=== PATIENT | male | born 1980 | race Caucasian/White ===

== ENCOUNTER 2017-01-22 20:52 | Emergency (ER) | payer OTHER ==
[2017-01-22 21:10] VITALS: RESP 18
[2017-01-22] MEDS ORDERED: MORPHINE SULFATE 10 MG/ML SYRINGE IM STA (22:28)
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
[2017-01-23 00:35] VITALS: BP 147/97; PULSE 92; TEMP 97
== END 2017-01-23 00:35 | disposition home or self-care (01) ==
LOC: EC 20:52
DX: S02.642A Fracture of ramus of left mandible, initial encounter for closed fracture (principal); F17.200 Nicotine dependence, unspecified, uncomplicated; Y08.89XA Assault by other specified means, initial encounter
CPT/HCPCS: 70486; 99283; 96372; J2270

== ENCOUNTER 2017-02-03 20:41 | Observation (INO) | payer OTHER ==
[2017-02-03] MEDS ORDERED: NALOXONE 0.4 MG/ML 10 ML VIAL IM STA (21:15)
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
--- NOTE | 2017-02-03 22:16 | CT ---
EXAMINATION TYPE: CT brain yuanine wo con DATE OF EXAM: 02/03/2017 9:56 PM COMPARISON: February 19, 2016 HISTORY: Patient found unresponsive CT DLP: 1877 mGycm Automated exposure control for dose reduction was used. TECHNIQUE: CT scan of the head and cervical spine are performed without contrast. FINDINGS: CT: There is no acute intracranial hemorrhage, mass effect, or midline shift identified. The ventric les and sulci are within normal limits in size. The globes are intact and the visualized sinuses are clear. Cervical spine CT: The cervical spine is visualized in its entirety from C1 through upper thoracic le vels and demonstrates satisfactory alignment without evidence of acute fracture or dislocation. Prev ertebral soft tissue appears within normal limits. The C1-C2 articulation is unremarkable. Left mandible: The left mandible shows a mildly displaced fracture through the ramus, immediately pos terior to the mandibular angle. This fracture extends through the mandibular canal. There is very lit tle in the way of comminution or displacement. The temporal mandibular joints are congruent. IMPRESSION: 1. Positive for left mandibular ramus fracture. 2. Head CT: There is no acute fracture or dislocation evident in the cervical spine. 3. Cervical spine CT: No acute intracranial hemorrhage, mass effect, or midline shift is seen.
--- NOTE | 2017-02-03 22:17 | XR ---
EXAMINATION TYPE: XR pelvis AP view DATE OF EXAM: 02/03/2017 9:52 PM COMPARISON: NONE HISTORY: Pain after injury TECHNIQUE: One view FINDINGS: The bones and joints and soft tissues are negative. IMPRESSION: No acute process.
--- NOTE | 2017-02-03 22:18 | XR ---
EXAMINATION TYPE: XR chest 1V DATE OF EXAM: 02/03/2017 9:52 PM COMPARISON: NONE HISTORY: Pain after injury TECHNIQUE: Single frontal view of the chest is obtained. FINDINGS: There is no focal air space opacity, pleural effusion, or pneumothorax seen. The cardiac silhouette size is within normal limits. The osseous structures are intact. IMPRESSION: No acute process.
[2017-02-03] MEDS ORDERED: NALOXONE 0.4 MG/ML 1 ML VIAL IV PRN (23:30)
[2017-02-03] MEDS ORDERED: LORazepam 2 MG/ML SYRINGE IV PRN ×2 (23:33)
[2017-02-03] MEDS ORDERED: THIAMINE 100 MG/ML 2 ML VIAL IM STA (23:33)
[2017-02-03 23:56] LABS: Anion Gap 16 mmol/L; Calcium 9.1 mg/dL (8.4-10.2); Carbon Dioxide 22 mmol/L (22-30); Chloride 111 mmol/L (98-107); Non-African American GFR(MDRD) >60 (>60 ml/min/1.73 sqM); Sodium 149 mmol/L (137-145)
[2017-02-03 23:58] LABS: Blood Urea Nitrogen 7 mg/dL (9-20); Glucose 92 mg/dL (74-99); Potassium 4.9 mmol/L (3.5-5.1)
[2017-02-04 00:21] LABS: Anisocytosis Slight; Basophils % (A) 1 %; CH 32.1; CHCM 34.3; Eosinophils # (A) 0.1 k/uL (0-0.7); Eosinophils % (A) 1 %; HCT 47.9 % (39.0-53.0); HDW 2.41; HGB 16.2 gm/dL (13.0-17.5); Luc # (Auto) 0.18; Luc % (Auto) 3; Lymphocytes # (A) 2.8 k/uL (1.0-4.8); Lymphocytes % (A) 42 %; MCH 31.7 pg (25.0-35.0); MCHC 33.8 g/dL (31.0-37.0); MCV 93.8 fL (80.0-100.0); Mean Platelet Volume 6.1; Monocytes # (A) 0.5 k/uL (0-1.0); Monocytes % (A) 7 %; Neutrophils # (A) 3.1 k/uL (1.3-7.7); Neutrophils % (A) 47 %; RDW 16.9 % (11.5-15.5); WBC 6.7 k/uL (3.8-10.6)
[2017-02-04] MEDS: LORazepam 2 MG/ML SYRINGE IV PRN ×2 (01:45→23:45)
[2017-02-04] MEDS: SODIUM CHLORIDE 0.9% 1,000 ML IV SCH ×2 (01:45→08:30)
[2017-02-04] MEDS: FAMOTIDINE 20 MG TAB PO SCH ×2 (08:29→20:35)
[2017-02-04] MEDS ORDERED: KETOROLAC 30 MG/ML 1 ML VIAL IVP PRN (14:38)
[2017-02-04] MEDS ORDERED: LACTATED RINGERS 1,000 ML IV SCH (14:45)
[2017-02-04] MEDS: THIAMINE 100 MG TAB PO SCH ×2 (15:04→18:34)
[2017-02-04] MEDS: MORPHINE SULFATE 4 MG/ML SYRINGE IVP PRN ×2 (15:48→20:14)
[2017-02-04] MEDS: NICOTINE 14MG/24HR PATCH TRANSDERM SCH (15:49)
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
[2017-02-04 17:11] LABS: Hepatitis B Surface Ag Index 0.06
[2017-02-04 17:17] LABS: Hepatitis B Core IgM Index 0.07
[2017-02-04 17:32] LABS: Hepatitis C Virus IgG Ab Reactive (Negative)
[2017-02-04] MEDS: SODIUM CHLORIDE 0.45% 1,000 ML IV SCH (18:34)
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
[2017-02-04] MEDS: AMOXIC-POT CLAV 875-125MG 1 EACH TAB PO SCH (20:18)
[2017-02-04 22:57] VITALS: RESP 16
[2017-02-05] MEDS: MORPHINE SULFATE 4 MG/ML SYRINGE IVP PRN ×3 (01:01→18:12)
[2017-02-05] MEDS: SODIUM CHLORIDE 0.45% 1,000 ML IV SCH ×2 (02:18→12:27)
[2017-02-05] MEDS: LORazepam 2 MG/ML SYRINGE IV PRN ×4 (04:36→18:13)
[2017-02-05] MEDS: FAMOTIDINE 20 MG TAB PO SCH (07:44)
[2017-02-05] MEDS: AMOXIC-POT CLAV 875-125MG 1 EACH TAB PO SCH (07:45)
[2017-02-05] MEDS: NICOTINE 14MG/24HR PATCH TRANSDERM SCH (07:45)
[2017-02-05] MEDS: THIAMINE 100 MG TAB PO SCH ×2 (12:25→17:16)
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
[2017-02-05 14:56] VITALS: BP 140/75; PULSE 83; TEMP 97.3
[2017-02-05] MEDS ORDERED: NAPROXEN 250 MG TAB PO SCH (16:00)
--- NOTE | 2017-02-06 14:46 | DS ---
DATE OF ADMISSION: 02/03/2017 DATE OF DISCHARGE: 02/05/2017 A 36-year-old admitted after alcohol intoxication, we watched him for withdrawals. Patient frequency of ( ) is pretty low. Patient is stable enough to be discharged to psychiatric floor. Patient has a left mandibular ramus fracture for which patient will undergo operative intervention and maxillofacial surgery is recommending Augmentin. Patient will be continued on Augmentin, will be discharged today. Patient was seen and examined on the day of discharge. Vitals are stable. PHYSICAL EXAMINATION: GENERAL: The patient is alert and oriented x3, not in any acute distress. Well developed, well nourished. HEENT: Pupils are round and equally reacting to light. EOMI. No scleral icterus. No conjunctival pallor. Normocephalic, atraumatic. No pharyngeal erythema. No thyromegaly. CARDIOVASCULAR: S1 and S2 present. No murmurs, rubs, or gallops. PULMONARY: Chest is clear to auscultation, no wheezing or crackles. ABDOMEN: Soft, nontender, nondistended, normoactive bowel sounds. No palpable organomegaly. MUSCULOSKELETAL: No joint swelling or deformity. EXTREMITIES: No cyanosis, clubbing, or pedal edema. NEUROLOGICAL: Gross neurological examination did not reveal any focal deficits. SKIN: No rashes. FINAL DIAGNOSES: 1. Alcohol intoxication, we watched for alcohol withdrawal. 2. Left jaw fracture. 3. Heroin abuse with hepatitis C being positive. Patient will need outpatient follow up with Gastroenterology. 4. Nicotine abuse. 5. Suicidal ideations and depression for which patient is being discharged to psychiatric floor. Spent greater than 35 minutes in total discharge process. Regular diet. Activity as tolerated. Please refer to depart summary for further details of discharge medications.
== END 2017-02-05 20:09 ==
LOC: EC 20:41 → INTOOBSV 23:31 → 4MS4W 23:31
PROVIDERS: ADMIT Hospitalist; ATTEND Hospitalist
DX: F10.229 Alcohol dependence with intoxication, unspecified (principal); F10.239 Alcohol dependence with withdrawal, unspecified; F19.129 Other psychoactive substance abuse with intoxication, unspecified; S02.642A Fracture of ramus of left mandible, initial encounter for closed fracture; F11.10 Opioid abuse, uncomplicated; R45.851 Suicidal ideations; R45.850 Homicidal ideations; F41.9 Anxiety disorder, unspecified; F43.10 Post-traumatic stress disorder, unspecified; I10 Essential (primary) hypertension; F17.210 Nicotine dependence, cigarettes, uncomplicated; B19.20 Unspecified viral hepatitis C without hepatic coma; F32.9 Major depressive disorder, single episode, unspecified; M79.1 Myalgia; F12.90 Cannabis use, unspecified, uncomplicated; Y90.8 Blood alcohol level of 240 mg/100 ml or more; Z16.24 Resistance to multiple antibiotics; Z86.14 Personal history of Methicillin resistant Staphylococcus aureus infection; Z91.5 Personal history of self-harm; Y04.0XXA Assault by unarmed brawl or fight, initial encounter; Z81.1 Family history of alcohol abuse and dependence; Z81.8 Family history of other mental and behavioral disorders; Z86.73 Personal history of transient ischemic attack (TIA), and cerebral infarction without residual deficits
CPT/HCPCS: 96376 ×2; 96361 ×2; 96374; 96375; 99285; 36415; 80048; 80074; 85025; 80320; 71010; 72170; 72125; 70450; G0378 ×3; S4990 ×2; J2060 ×2; J2270 ×2; J3411; J1885

== ENCOUNTER 2017-02-05 20:14 | Inpatient (IN) | payer MEDICAID, OTHER ==
[2017-02-05] MEDS ORDERED: MAGNESIUM HYDROXIDE 2,400 MG/10 ML CUP PO PRN (20:52)
[2017-02-05] MEDS ORDERED: ZIPRASIDONE 20 MG VIAL IM PRN (20:52)
[2017-02-05] MEDS ORDERED: ACETAMINOPHEN TAB 325 MG TAB PO PRN (20:52)
[2017-02-05] MEDS ORDERED: MAG HYDROX/AL HYDROX/SIMETH 30 ML CUP PO PRN (20:52)
[2017-02-05] MEDS ORDERED: QUEtiapine 50 MG TAB PO PRN (21:00)
[2017-02-05] MEDS ORDERED: LORazepam 2 MG/ML SYRINGE IM PRN (21:59)
[2017-02-05] MEDS: HYDROcodone/APAP 5-325MG 1 EACH TAB PO PRN (22:35)
[2017-02-05] MEDS: FAMOTIDINE 20 MG TAB PO SCH (22:35)
[2017-02-05] MEDS: AMOXIC-POT CLAV 875-125MG 1 EACH TAB PO SCH (22:37)
[2017-02-05 22:44] VITALS: BMI 25.4
[2017-02-06] MEDS: LORazepam 1 MG TAB PO PRN ×3 (00:14→17:54)
[2017-02-06] MEDS: HYDROcodone/APAP 5-325MG 1 EACH TAB PO PRN ×3 (06:03→22:13)
[2017-02-06 07:01] VITALS: RESP 18
[2017-02-06] MEDS: NICOTINE 21MG/24HR PATCH TRANSDERM SCH (09:06)
[2017-02-06] MEDS: AMOXIC-POT CLAV 875-125MG 1 EACH TAB PO SCH ×2 (09:06→20:39)
[2017-02-06] MEDS: FAMOTIDINE 20 MG TAB PO SCH ×2 (09:06→20:39)
[2017-02-06] MEDS: THIAMINE 100 MG TAB PO SCH (09:06)
[2017-02-06 09:22] LABS: ALT 125 U/L (21-72); AST 126 U/L (17-59); Alkaline Phosphatase 132 U/L (38-126); Anion Gap 10 mmol/L; Bilirubin, Delta 0.4 mg/dL (0.0-0.2); Blood Urea Nitrogen 16 mg/dL (9-20); Calcium 10.2 mg/dL (8.4-10.2); Carbon Dioxide 26 mmol/L (22-30); Chloride 103 mmol/L (98-107); Glucose 118 mg/dL (74-99); Non-African American GFR(MDRD) >60 (>60 ml/min/1.73 sqM); Potassium 4.1 mmol/L (3.5-5.1); Sodium 139 mmol/L (137-145); Total Bilirubin 1.3 mg/dL (0.2-1.3); Total Protein 7.7 g/dL (6.3-8.2)
[2017-02-06 09:28] LABS: Anisocytosis Slight; Basophils % (A) 1 %; CH 32.6; CHCM 34.9; Eosinophils # (A) 0.2 k/uL (0-0.7); Eosinophils % (A) 3 %; HCT 49.1 % (39.0-53.0); HDW 2.55; HGB 16.7 gm/dL (13.0-17.5); Luc # (Auto) 0.13; Luc % (Auto) 3; Lymphocytes # (A) 1.3 k/uL (1.0-4.8); Lymphocytes % (A) 24 %; MCH 31.9 pg (25.0-35.0); MCV 93.7 fL (80.0-100.0); Mean Platelet Volume 6.6; Monocytes # (A) 0.4 k/uL (0-1.0); Monocytes % (A) 8 %; Neutrophils # (A) 3.3 k/uL (1.3-7.7); Neutrophils % (A) 62 %; RBC 5.24 m/uL (4.30-5.90); RDW 16.5 % (11.5-15.5); WBC 5.4 k/uL (3.8-10.6)
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
[2017-02-07] MEDS: HYDROcodone/APAP 5-325MG 1 EACH TAB PO PRN (05:59)
[2017-02-07] MEDS: LORazepam 1 MG TAB PO PRN ×3 (06:04→12:00)
[2017-02-07 06:14] VITALS: BP 136/96; PULSE 84; TEMP 98.7
--- NOTE | 2017-02-07 08:45 | CONS ---
DATE OF CONSULTATION: Reason for consultation is elevated liver enzymes and patient was discharged from ( ) after he was monitored for withdrawals and patient does not have fevers or withdrawals at this point of time. Patient has a history of heroin use and patient does have history of hepatitis C. Patient denied any fevers, chills nausea, vomiting at this point of time. Patient denied any abdominal pain and patient has a jaw fracture for which patient will undergo surgical intervention and maxillofacial surgery ( ) which is being continued. ROS: All other systems were reviewed and were negative. PAST MEDICAL HISTORY: Significant for alcohol abuse, depression, suicide attempt, anxiety, bipolar disorder, left mandibular fracture, bipolar PTSD. SOCIAL HISTORY: Patient continues to smoke, continues to drink alcohol, heroin use, marijuana use. Family history is significant for diabetes mellitus. PHYSICAL EXAMINATION: VITAL SIGNS: Temperature 97.8, pulse of 99, respiratory rate of 18, blood pressure is 134/100, saturating at 100% on room air. GENERAL: The patient is alert and oriented x3, not in any acute distress. Well developed, well nourished. HEENT: Pupils are round and equally reacting to light. EOMI. No scleral icterus. No conjunctival pallor. Normocephalic, atraumatic. No pharyngeal erythema. No thyromegaly. CARDIOVASCULAR: S1 and S2 present. No murmurs, rubs, or gallops. PULMONARY: Chest is clear to auscultation, no wheezing or crackles. ABDOMEN: Soft, nontender, nondistended, normoactive bowel sounds. No palpable organomegaly. MUSCULOSKELETAL: No joint swelling or deformity. EXTREMITIES: No cyanosis, clubbing, or pedal edema. NEUROLOGICAL: Gross neurological examination did not reveal any focal deficits. SKIN: No rashes. LABORATORY DATA: CBC and CMP are abnormal for elevated AST and ALT. ASSESSMENT AND PLAN: 1. Severe depression and suicidal ideation management as per Primary Service. 2. Hepatitis C with elevated liver enzymes. 3. Acute alcoholic hepatitis. 4. Nicotine abuse. 5. Suicidal ideation. PLAN: Will repeat liver enzymes to make sure liver enzymes are not going up and patient has been told he will need to call his athletic shoe designer as an outpatient. Patient has been instructed for the same thing. Patient will need further work-up for hep-C with viral load and typing of hep-C. Extensive counseling regarding drug use, nicotine use and alcohol use was provided. Will continue to follow the patient only on an as-needed basis. Will follow with the repeated liver enzyme. Thank you for letting me participate in the patient's care. Patient will not need any inpatient hospitalization at this point of time. Continue with Augmentin for mandibular fracture. Discussed with Dr. Pena regarding timing of his surgery yesterday. SHIRIN
[2017-02-07] MEDS: NICOTINE 21MG/24HR PATCH TRANSDERM SCH (09:30)
[2017-02-07] MEDS: THIAMINE 100 MG TAB PO SCH (09:30)
[2017-02-07] MEDS: FAMOTIDINE 20 MG TAB PO SCH (09:30)
[2017-02-07] MEDS: AMOXIC-POT CLAV 875-125MG 1 EACH TAB PO SCH (09:31)
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
[2017-02-07 10:42] LABS: ALT 145 U/L (21-72); AST 160 U/L (17-59); Alkaline Phosphatase 129 U/L (38-126); Anion Gap 13 mmol/L; Blood Urea Nitrogen 17 mg/dL (9-20); Calcium 10.1 mg/dL (8.4-10.2); Carbon Dioxide 25 mmol/L (22-30); Chloride 103 mmol/L (98-107); Glucose 121 mg/dL (74-99); Non-African American GFR(MDRD) >60 (>60 ml/min/1.73 sqM); Potassium 4.1 mmol/L (3.5-5.1); Sodium 141 mmol/L (137-145); Total Bilirubin 1.2 mg/dL (0.2-1.3); Total Protein 7.8 g/dL (6.3-8.2)
== END 2017-02-07 13:00 | disposition home or self-care (01) | DRG 885 ==
LOC: 3MHU 20:15
PROVIDERS: ADMIT Psychiatry & Neurology Psychiatry; ATTEND Psychiatry & Neurology Psychiatry
DX: F33.3 Major depressive disorder, recurrent, severe with psychotic symptoms (principal); K70.10 Alcoholic hepatitis without ascites; R45.850 Homicidal ideations; R45.851 Suicidal ideations; F10.239 Alcohol dependence with withdrawal, unspecified; S02.642A Fracture of ramus of left mandible, initial encounter for closed fracture; F41.0 Panic disorder [episodic paroxysmal anxiety]; F43.10 Post-traumatic stress disorder, unspecified; Y90.8 Blood alcohol level of 240 mg/100 ml or more; Z59.0 Homelessness; Z79.899 Other long term (current) drug therapy; Z83.3 Family history of diabetes mellitus; Z86.73 Personal history of transient ischemic attack (TIA), and cerebral infarction without residual deficits; Z91.5 Personal history of self-harm; F17.200 Nicotine dependence, unspecified, uncomplicated; F12.90 Cannabis use, unspecified, uncomplicated; F11.90 Opioid use, unspecified, uncomplicated; B19.20 Unspecified viral hepatitis C without hepatic coma; G89.29 Other chronic pain; M54.89 Other dorsalgia
CPT/HCPCS: 80053; 82248; 84443; 85025

== ENCOUNTER 2017-03-30 08:33 | Inpatient (IN) | payer MEDICAID, OTHER ==
[2017-03-30] MEDS ORDERED: SODIUM CHLORIDE 0.9% 1,000 ML IV ONE (09:21)
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
[2017-03-30] MEDS ORDERED: SODIUM CHLORIDE 0.9% 1,000 ML with POTASSIUM CHLORIDE 20 MEQ, MVI, ADULT NO.4 WITH VIT ... IV SCH ×5 (09:30)
[2017-03-30 09:59] LABS: ALT 158 U/L (21-72); AST 228 U/L (17-59); Alkaline Phosphatase 108 U/L (38-126); Anion Gap 15 mmol/L; Blood Urea Nitrogen 4 mg/dL (9-20); Calcium 8.8 mg/dL (8.4-10.2); Carbon Dioxide 24 mmol/L (22-30); Chloride 110 mmol/L (98-107); Glucose 147 mg/dL (74-99); Magnesium 1.9 mg/dL (1.6-2.3); Non-African American GFR(MDRD) >60 (>60 ml/min/1.73 sqM); Potassium 3.9 mmol/L (3.5-5.1); Sodium 149 mmol/L (137-145); Total Bilirubin 0.7 mg/dL (0.2-1.3); Total Protein 7.5 g/dL (6.3-8.2)
[2017-03-30 10:09] LABS: Alcohol 470 mg/dL
[2017-03-30 10:39] LABS: Basophils % (A) 1 %; CH 34.3; CHCM 34.1; Eosinophils # (A) 0.1 k/uL (0-0.7); Eosinophils % (A) 2 %; HCT 52.2 % (39.0-53.0); HDW 2.39; HGB 17.6 gm/dL (13.0-17.5); Luc # (Auto) 0.09; Luc % (Auto) 2; Lymphocytes # (A) 1.6 k/uL (1.0-4.8); Lymphocytes % (A) 30 %; Macrocytosis Slight; Mean Platelet Volume 6.9; Monocytes # (A) 0.3 k/uL (0-1.0); Monocytes % (A) 6 %; Neutrophils # (A) 3.2 k/uL (1.3-7.7); Neutrophils % (A) 60 %; RBC 5.17 m/uL (4.30-5.90); RDW 13.7 % (11.5-15.5); WBC 5.2 k/uL (3.8-10.6); WBC (Perox) 5.21
[2017-03-30 10:40] LABS: MCHC 33.7 g/dL (31.0-37.0)
[2017-03-30] MEDS ORDERED: NALOXONE 0.4 MG/ML 1 ML VIAL IV PRN (10:57)
[2017-03-30] MEDS ORDERED: ONDANSETRON 4 MG/2 ML VIAL IVP PRN (10:57)
[2017-03-30] MEDS ORDERED: ACETAMINOPHEN TAB 325 MG TAB PO PRN (10:57)
[2017-03-30] MEDS ORDERED: SODIUM CHLORIDE 0.9% 1,000 ML IV SCH (11:00)
[2017-03-30] MEDS ORDERED: THIAMINE 100 MG/ML 2 ML VIAL IM STA (11:01)
[2017-03-30] MEDS: LORazepam 2 MG/ML SYRINGE IV PRN ×3 (14:27→19:48)
[2017-03-30] MEDS ORDERED: QUEtiapine 50 MG TAB PO PRN (16:35)
[2017-03-30] MEDS: THIAMINE 100 MG TAB PO SCH (17:24)
[2017-03-30] MEDS: SODIUM CHLORIDE 0.45% 1,000 ML IV SCH (20:20)
[2017-03-30] MEDS: FAMOTIDINE 20 MG TAB PO SCH (20:30)
--- NOTE | 2017-03-30 21:21 | HP ---
DATE OF ADMISSION: 03/30/2017 Patient is a 36-year-old came in with alcohol intoxication. Patient was admitted with withdrawals. Patient is having significant withdrawals and is on Ativan and CIWA protocol. The patient has multiple hospitalizations in the past. I had extensive discussion with the patient and patient is at this time is willing to quit alcohol. Patient is tachycardic and patient also has alcoholic hepatitis. The patient was intoxicated yesterday. Patient continues to drink quite a bit of alcohol and patient has jaw wires for which patient is supposed to follow with Dr. Calderon, maxillofacial surgeon who was also consulted for the wiring removal. Patient has very poor dental hygiene. The patient denied any suicidal homicidal ideation. Denied any depression at this point of time. Denied any abdominal pain, nausea, vomiting, fever, chills. Patient is tachycardic and a little bit tremulous secondary to withdrawals. ROS: All other systems were reviewed and were negative. HOME MEDICATIONS include: 1. Naproxen. 2. Rhome. 3. Famotidine. 4. Thiamin. 5. Nicotine. 6. Seroquel. ALLERGIES: No known drug allergies. PAST MEDICAL HISTORY: Significant for alcohol abuse history. History of hypertension in the past, most probably alcohol withdrawals rather than actually hypertension. Chronic low back pain. Bipolar disorder. SOCIAL HISTORY: Patient continues to smoke heavily, 1-1/2 to 2 packs per day. Continues to drink alcohol heavily, history of heroin use and marijuana use in the past. Patient has positive hepatitis C in the past. FAMILY PAST MEDICAL HISTORY: Mother age 44 with complications from surgery and father had diabetes mellitus. PHYSICAL EXAMINATION: VITAL SIGNS: Temperature 98.3, pulse 109, respiratory rate of 18, blood pressure is 140/88, saturating at 96% on 2 L O2 by nasal cannula. GENERAL: The patient is alert and oriented x3, not in any acute distress. Well developed, well nourished. Mild tenderness ( ). HEENT: Poor dental hygiene with previous wiring. Pupils are round and equally reacting to light. EOMI. No scleral icterus. No conjunctival pallor. Normocephalic, atraumatic. No pharyngeal erythema. No thyromegaly. CARDIOVASCULAR: S1 and S2 tachycardic. Regular rhythm. No murmurs, rubs, or gallops. PULMONARY: Chest is clear to auscultation, no wheezing or crackles. ABDOMEN: Soft, nontender, nondistended, normoactive bowel sounds. No palpable organomegaly. MUSCULOSKELETAL: No joint swelling or deformity. EXTREMITIES: No cyanosis, clubbing, or pedal edema. NEUROLOGICAL: Gross neurological examination did not reveal any focal deficits. SKIN: No rashes. LABORATORY DATA: CBC, CMP, abdominal for elevated MCV of 101.1, hemoglobin 17.6 secondary to hemoconcentration. Sodium 149, chloride of 110, secondary to IV fluids, BUN of 0.63, AST and ALT are elevated to 228 and ALT is 158, ratio is mostly consistent with alcoholic hepatitis, although patient does have S3 as well. Serum alcohol level when he came in was 470. ASSESSMENT AND PLAN: 1. Alcohol overdose: Extensive counseling was provided. 2. Alcohol withdrawal. Patient will be on Ativan CIWA protocol seizure precautions. 3. Thiamine, multivitamin supplementation. 4. Elevated liver enzymes secondary to alcoholic hepatitis with contribution from hepatitis C. 5. Hepatitis C will need follow-up as an outpatient for that. 6. Bipolar disorder for which the patient ( ). 7. The patient had a recent jaw surgery jaw for which his jaw wiring needs to be removed for which maxillofacial surgeon was consulted. 8. Extensive counseling regarding nicotine use and alcohol use was provided. SHIRIN
[2017-03-31] MEDS: SODIUM CHLORIDE 0.45% 1,000 ML IV SCH ×2 (04:36→12:49)
[2017-03-31] MEDS: LORazepam 2 MG/ML SYRINGE IV PRN ×6 (05:31→22:32)
[2017-03-31 07:28] LABS: ALT 140 U/L (21-72); AST 178 U/L (17-59); Alkaline Phosphatase 94 U/L (38-126); Anion Gap 6 mmol/L; Blood Urea Nitrogen 4 mg/dL (9-20); CH 34.3; CHCM 34.9; Calcium 8.9 mg/dL (8.4-10.2); Carbon Dioxide 24 mmol/L (22-30); Chloride 109 mmol/L (98-107); Glucose 79 mg/dL (74-99); HCT 45.8 % (39.0-53.0); HDW 2.53; HGB 15.6 gm/dL (13.0-17.5); MCH 33.7 pg (25.0-35.0); MCHC 34.1 g/dL (31.0-37.0); MCV 98.6 fL (80.0-100.0); Non-African American GFR(MDRD) >60 (>60 ml/min/1.73 sqM); Potassium 3.9 mmol/L (3.5-5.1); RBC 4.65 m/uL (4.30-5.90); RDW 13.4 % (11.5-15.5); Sodium 139 mmol/L (137-145); Total Bilirubin 1.2 mg/dL (0.2-1.3); Total Protein 6.2 g/dL (6.3-8.2); WBC 5.3 k/uL (3.8-10.6)
[2017-03-31] MEDS: FAMOTIDINE 20 MG TAB PO SCH ×2 (07:59→20:45)
[2017-03-31] MEDS: THIAMINE 100 MG TAB PO SCH ×2 (12:47→17:00)
[2017-03-31 14:53] VITALS: RESP 16
--- NOTE | 2017-03-31 20:45 | PN ---
Patient is admitted for alcohol withdrawals. Patient is still having quite a bit of withdrawals and patient's CIWA score is around 8 today. Patient is requiring Ativan every 2 hours. Medications were reviewed. REVIEW OF SYSTEMS: CARDIOVASCULAR: No chest pain, no orthopnea, no PND, no palpitations. PULMONARY: Denied any shortness of breath. No cough or hemoptysis. GASTROINTESTINAL: No diarrhea, nausea or vomiting. No abdominal pain. Normoactive bowel sounds. NEUROLOGIC: No headaches, no weakness, no numbness. PHYSICAL EXAMINATION: VITAL SIGNS: Temperature 97.2, pulse of 94, respirations 16, blood pressure is 120/74, saturating at 98% on room air. HEENT: No significant change. Patient still has is wiring. Patient may need to follow up with Dr. Calderon as an outpatient. NECK: No jugular venous distention. No thyroid enlargement or carotid bruit. No lymph node enlargement. CARDIOVASCULAR: S1 and S2, muffled. RESPIRATORY: Breath sounds diminished at the bases. A few scattered rhonchi, no crackles. ABDOMEN: Soft, status post surgery. LEGS: No edema, no swelling. NERVOUS SYSTEM: Higher function as mentioned. Moves all four limbs. No focal motor deficits. LYMPHATIC: No lymphadenopathy in the neck, axillae or groin. SKIN: No ulcer, rash or bleeding. LABORATORY DATA: AST improved significantly and ALT improved minimally. ASSESSMENT AND PLAN: 1. Alcohol overdose. Counseling was provided. 2. Alcohol withdrawals. Patient will need to stay in the hospital because of continued significant withdrawals. Thiamine, multivitamins will be supplemented. Patient will be continued on IV fluids. 3. Alcoholic hepatitis. 4. Hepatitis C for which patient will need to follow with Gastroenterology. 5. Bipolar disorder. 6. Recent jaw surgery. Patient will follow with maxillofacial surgery as an outpatient for removal of his wiring.
[2017-04-01 00:41] VITALS: TEMP 97.4
[2017-04-01] MEDS: LORazepam 2 MG/ML SYRINGE IV PRN ×3 (02:11→12:23)
[2017-04-01 08:19] VITALS: BP 146/88; PULSE 83
[2017-04-01] MEDS: FAMOTIDINE 20 MG TAB PO SCH (08:20)
[2017-04-01] MEDS: THIAMINE 100 MG TAB PO SCH (12:16)
--- NOTE | 2017-04-02 14:04 | DS ---
DATE OF ADMISSION: 03/30/2017 DATE OF DISCHARGE: 04/01/2017 Patient is admitted to the hospital for alcohol withdrawals and patient is clinically doing well and patient is not requiring Ativan often. The patient will be discharged on a p.r.n. Ativan to home. Patient was seen and examined on the day of discharge. Vital signs stable. PHYSICAL EXAMINATION: GENERAL: The patient is alert and oriented x3, not in any acute distress. Well developed, well nourished. HEENT: Pupils are round and equally reacting to light. EOMI. No scleral icterus. No conjunctival pallor. Normocephalic, atraumatic. No pharyngeal erythema. No thyromegaly. CARDIOVASCULAR: S1 and S2 present. No murmurs, rubs, or gallops. PULMONARY: Chest is clear to auscultation, no wheezing or crackles. ABDOMEN: Soft, nontender, nondistended, normoactive bowel sounds. No palpable organomegaly. MUSCULOSKELETAL: No joint swelling or deformity. EXTREMITIES: No cyanosis, clubbing, or pedal edema. NEUROLOGICAL: Gross neurological examination did not reveal any focal deficits. SKIN: No rashes. FINAL DIAGNOSES: 1. Alcoholic gastritis. 2. Alcoholic hepatitis which improved. 3. Alcohol overdose. Counseling was provided. Patient was admitted to the hospital for alcohol withdrawals. 4. Hepatitis C for which patient will need to follow with gastroenterology. 5. Recent jaw surgery, will need to follow with maxillofacial surgeon for removal of his wiring. 6. Bipolar disorder. 7. Extensive counseling regarding nicotine use and alcohol use was provided. The patient will be discharged today. Regular diet. Activity as tolerated. Patient will follow up with his PCP in 3 to 7 days. Spent greater than 35 minutes in total discharge process.
== END 2017-04-01 14:36 | disposition home or self-care (01) | DRG 897 ==
LOC: EC 08:33 → 3SUR 11:07
PROVIDERS: ADMIT Hospitalist; ATTEND Hospitalist
PROC: HZ2ZZZZ Detoxification Services for Substance Abuse Treatment (ICD-10-PCS; principal; 2017-03-30)
DX: F10.239 Alcohol dependence with withdrawal, unspecified (principal); F11.90 Opioid use, unspecified, uncomplicated; K70.10 Alcoholic hepatitis without ascites; F31.9 Bipolar disorder, unspecified; K29.20 Alcoholic gastritis without bleeding; B19.20 Unspecified viral hepatitis C without hepatic coma; S02.609D Fracture of mandible, unspecified, subsequent encounter for fracture with routine healing; T51.0X1A Toxic effect of ethanol, accidental (unintentional), initial encounter; F17.210 Nicotine dependence, cigarettes, uncomplicated; F12.90 Cannabis use, unspecified, uncomplicated; F41.9 Anxiety disorder, unspecified; F43.10 Post-traumatic stress disorder, unspecified; G89.29 Other chronic pain; M54.5 Low back pain; R00.0 Tachycardia, unspecified; Z71.41 Alcohol abuse counseling and surveillance of alcoholic; Z79.1 Long term (current) use of non-steroidal anti-inflammatories (NSAID); Z71.6 Tobacco abuse counseling; Z86.14 Personal history of Methicillin resistant Staphylococcus aureus infection; Z86.79 Personal history of other diseases of the circulatory system; Z91.5 Personal history of self-harm; Z87.828 Personal history of other (healed) physical injury and trauma; Z98.890 Other specified postprocedural states; Z79.899 Other long term (current) drug therapy; Z83.3 Family history of diabetes mellitus; Z86.19 Personal history of other infectious and parasitic diseases; Z81.1 Family history of alcohol abuse and dependence; Y90.8 Blood alcohol level of 240 mg/100 ml or more
CPT/HCPCS: 36415; 80053; 80306; 80320; 83735; 85025; 85027; 96365; 96366; 99285

== ENCOUNTER 2017-04-10 11:40 | Emergency (ER) | payer OTHER ==
[2017-04-10 11:57] VITALS: BP 138/97; PULSE 124; RESP 18; TEMP 98.2
[2017-04-10] MEDS ORDERED: HYDROcodone/APAP 5-325MG 1 EACH TAB PO STA (12:16)
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
== END 2017-04-10 12:36 | disposition home or self-care (01) ==
LOC: EC 11:40
DX: K08.89 Other specified disorders of teeth and supporting structures (principal); R00.0 Tachycardia, unspecified; R22.0 Localized swelling, mass and lump, head; F17.210 Nicotine dependence, cigarettes, uncomplicated; Z88.6 Allergy status to analgesic agent; Z98.890 Other specified postprocedural states
CPT/HCPCS: 99282

== ENCOUNTER 2017-04-29 15:20 | Emergency (ER) | payer OTHER ==
[2017-04-29 15:27] VITALS: TEMP 97.7
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
[2017-04-29] MEDS ORDERED: IBUPROFEN 600 MG TAB PO STA (17:03)
[2017-04-29 17:08] VITALS: BP 114/59; PULSE 67; RESP 16
== END 2017-04-29 17:07 | disposition home or self-care (01) ==
LOC: EC 15:20
DX: S51.812A Laceration without foreign body of left forearm, initial encounter (principal); S00.83XA Contusion of other part of head, initial encounter; F17.200 Nicotine dependence, unspecified, uncomplicated; Z88.5 Allergy status to narcotic agent; Z88.6 Allergy status to analgesic agent; X99.1XXA Assault by knife, initial encounter; Y04.0XXA Assault by unarmed brawl or fight, initial encounter; Y92.511 Restaurant or cafe as the place of occurrence of the external cause
CPT/HCPCS: 12002; 70450; 70486; 72125; 99284

== ENCOUNTER 2017-05-18 20:24 | Inpatient (IN) | payer OTHER ==
[2017-05-18] MEDS ORDERED: CLINDAMYCIN 600 MG in DEXTROSE 5% IN WATER 50 ML IVPB STA ×2 (21:29)
[2017-05-18] MEDS ORDERED: MORPHINE SULFATE 4 MG/ML SYRINGE IV STA (21:29)
[2017-05-18] MEDS ORDERED: DIPH,PERTUS(ACELL)TETVAC-LF 0.5 ML VIAL IM ONE (21:29)
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
[2017-05-18 22:21] LABS: Basophils # (A) 0.1 k/uL (0-0.2); Basophils % (A) 0 %; CH 33.8; CHCM 35.5; Eosinophils # (A) 0.1 k/uL (0-0.7); Eosinophils % (A) 1 %; HCT 48.3 % (39.0-53.0); HDW 2.63; Luc # (Auto) 0.26; Luc % (Auto) 1; Lymphocytes # (A) 1.8 k/uL (1.0-4.8); Lymphocytes % (A) 8 %; MCH 33.8 pg (25.0-35.0); MCHC 35.3 g/dL (31.0-37.0); MCV 95.7 fL (80.0-100.0); Mean Platelet Volume 6.8; Monocytes # (A) 1.6 k/uL (0-1.0); Monocytes % (A) 7 %; Neutrophils # (A) 18.5 k/uL (1.3-7.7); Neutrophils % (A) 83 %; RBC 5.05 m/uL (4.30-5.90); RDW 12.9 % (11.5-15.5); WBC 22.3 k/uL (3.8-10.6); WBC (Perox) 22.86
[2017-05-18 22:33] LABS: Anion Gap 19 mmol/L; Blood Urea Nitrogen 9 mg/dL (9-20); Calcium 9.2 mg/dL (8.4-10.2); Carbon Dioxide 15 mmol/L (22-30); Chloride 106 mmol/L (98-107); Glucose 111 mg/dL (74-99); Non-African American GFR(MDRD) >60 (>60 ml/min/1.73 sqM); Sodium 140 mmol/L (137-145)
[2017-05-18 22:37] LABS: Potassium 5.7 mmol/L (3.5-5.1)
[2017-05-18 22:39] LABS: Alcohol 203 mg/dL
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
[2017-05-19] MEDS ORDERED: NALOXONE 0.4 MG/ML 1 ML VIAL IV PRN (02:11)
[2017-05-19] MEDS ORDERED: ACETAMINOPHEN TAB 325 MG TAB PO PRN (02:11)
[2017-05-19] MEDS ORDERED: ONDANSETRON 4 MG/2 ML VIAL IVP PRN (02:11)
[2017-05-19] MEDS ORDERED: MORPHINE SULFATE 4 MG/ML SYRINGE IV STA (02:14)
[2017-05-19] MEDS ORDERED: SODIUM CHLORIDE 0.9% 500 ML IV STA (02:14)
[2017-05-19] MEDS ORDERED: LORazepam 2 MG/ML SYRINGE IV PRN (02:15)
[2017-05-19] MEDS ORDERED: THIAMINE 100 MG/ML 2 ML VIAL IM STA (02:15)
[2017-05-19] MEDS: SODIUM CHLORIDE 0.9% 1,000 ML IV SCH ×4 (02:35→22:47)
[2017-05-19 05:26] VITALS: BMI 24.3
[2017-05-19] MEDS ORDERED: DEXAMETHASONE SOD PHOSPHATE 4 MG/ML 1 ML VIAL IV PRN (07:14)
[2017-05-19] MEDS: MORPHINE SULFATE 4 MG/ML SYRINGE IV PRN ×5 (07:29→22:47)
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
[2017-05-19] MEDS: CLINDAMYCIN 600 MG in DEXTROSE 5% IN WATER 50 ML IVPB SCH ×6 (07:42→23:51)
[2017-05-19] MEDS ORDERED: INSULIN LISPRO (humaLOG) 300 UNIT/3 ML VIAL SQ SCH (07:45)
[2017-05-19] MEDS: LORazepam 2 MG/ML SYRINGE IV PRN ×6 (08:38→23:53)
[2017-05-19] MEDS: NICOTINE 21MG/24HR PATCH TRANSDERM SCH (08:38)
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
[2017-05-19 08:58] LABS: Hemoglobin A1C 5.5 % (4.2-6.1)
[2017-05-19] MEDS: DEXAMETHASONE SOD PHOSPHATE 4 MG/ML 1 ML VIAL IV SCH ×3 (11:02→23:52)
[2017-05-19 11:36] LABS: Glucose,Whole Blood 112 mg/dL (75-99)
[2017-05-19] MEDS: INSULIN LISPRO (humaLOG) 300 UNIT/3 ML VIAL SQ SCH ×2 (12:31→17:45)
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
[2017-05-19 13:47] LABS: Basophils % (A) 0 %; CH 33.7; CHCM 35.5; Eosinophils % (A) 0 %; HCT 47.2 % (39.0-53.0); HDW 2.58; HGB 16.7 gm/dL (13.0-17.5); Luc % (Auto) 1; Lymphocytes # (A) 0.7 k/uL (1.0-4.8); Lymphocytes % (A) 4 %; MCH 33.8 pg (25.0-35.0); MCHC 35.5 g/dL (31.0-37.0); MCV 95.2 fL (80.0-100.0); Mean Platelet Volume 6.8; Monocytes # (A) 0.9 k/uL (0-1.0); Monocytes % (A) 6 %; Neutrophils # (A) 15.1 k/uL (1.3-7.7); Neutrophils % (A) 89 %; RBC 4.96 m/uL (4.30-5.90); RDW 12.7 % (11.5-15.5); WBC (Perox) 16.85
[2017-05-19 14:07] LABS: ALT 92 U/L (21-72); AST 37 U/L (17-59); Alkaline Phosphatase 110 U/L (38-126); Anion Gap 12 mmol/L; Blood Urea Nitrogen 9 mg/dL (9-20); Calcium 9.7 mg/dL (8.4-10.2); Carbon Dioxide 22 mmol/L (22-30); Chloride 103 mmol/L (98-107); Glucose 124 mg/dL (74-99); Non-African American GFR(MDRD) >60 (>60 ml/min/1.73 sqM); Potassium 4.9 mmol/L (3.5-5.1); Sodium 137 mmol/L (137-145); Total Bilirubin 1.2 mg/dL (0.2-1.3); Total Protein 7.3 g/dL (6.3-8.2)
[2017-05-19] MEDS: HEPARIN SODIUM,PORCINE 5,000 UNIT/ML 1 ML VIAL SQ SCH ×2 (15:20→23:52)
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
[2017-05-19 16:48] LABS: Glucose,Whole Blood 210 mg/dL (75-99)
[2017-05-19] MEDS: THIAMINE 100 MG TAB PO SCH (17:45)
[2017-05-19] MEDS: FAMOTIDINE 20 MG/2 ML VIAL IV SCH (18:03)
[2017-05-19 23:37] LABS: Glucose,Whole Blood 128 mg/dL (75-99)
[2017-05-20] MEDS: MORPHINE SULFATE 4 MG/ML SYRINGE IV PRN ×2 (02:50→06:04)
[2017-05-20] MEDS: LORazepam 2 MG/ML SYRINGE IV PRN (04:33)
[2017-05-20 05:58] LABS: Glucose,Whole Blood 127 mg/dL (75-99)
[2017-05-20] MEDS: SODIUM CHLORIDE 0.9% 1,000 ML IV SCH ×4 (06:03→23:29)
[2017-05-20] MEDS: DEXAMETHASONE SOD PHOSPHATE 4 MG/ML 1 ML VIAL IV SCH ×4 (06:07→23:28)
[2017-05-20] MEDS: INSULIN LISPRO (humaLOG) 300 UNIT/3 ML VIAL SQ SCH ×4 (06:10→18:01)
[2017-05-20 06:50] LABS: Basophils % (A) 0 %; CH 34.1; CHCM 35.7; Eosinophils # (A) 0.1 k/uL (0-0.7); Eosinophils % (A) 0 %; HCT 41.8 % (39.0-53.0); HDW 2.56; HGB 14.8 gm/dL (13.0-17.5); Luc # (Auto) 0.07; Luc % (Auto) 0; Lymphocytes # (A) 0.8 k/uL (1.0-4.8); Lymphocytes % (A) 5 %; MCH 33.8 pg (25.0-35.0); MCHC 35.3 g/dL (31.0-37.0); MCV 95.8 fL (80.0-100.0); Mean Platelet Volume 6.9; Monocytes # (A) 0.8 k/uL (0-1.0); Monocytes % (A) 5 %; Neutrophils % (A) 90 %; RBC 4.37 m/uL (4.30-5.90); RDW 12.6 % (11.5-15.5); WBC 17.7 k/uL (3.8-10.6)
[2017-05-20 07:07] LABS: ALT 64 U/L (21-72); AST 24 U/L (17-59); Alkaline Phosphatase 84 U/L (38-126); Anion Gap 9 mmol/L; Blood Urea Nitrogen 9 mg/dL (9-20); Calcium 9.7 mg/dL (8.4-10.2); Carbon Dioxide 25 mmol/L (22-30); Chloride 104 mmol/L (98-107); Glucose 119 mg/dL (74-99); Non-African American GFR(MDRD) >60 (>60 ml/min/1.73 sqM); Potassium 4.9 mmol/L (3.5-5.1); Sodium 138 mmol/L (137-145); Total Bilirubin 0.7 mg/dL (0.2-1.3); Total Protein 6.7 g/dL (6.3-8.2)
[2017-05-20] MEDS: CLINDAMYCIN 600 MG in DEXTROSE 5% IN WATER 50 ML IVPB SCH ×2 (07:30)
[2017-05-20] MEDS: NICOTINE 21MG/24HR PATCH TRANSDERM SCH (07:30)
[2017-05-20] MEDS: FAMOTIDINE 20 MG/2 ML VIAL IV SCH ×2 (07:31→19:53)
[2017-05-20] MEDS: HEPARIN SODIUM,PORCINE 5,000 UNIT/ML 1 ML VIAL SQ SCH ×3 (07:31→23:28)
[2017-05-20] MEDS ORDERED: DEXAMETHASONE SOD PHOSPHATE 10 MG/ML 1 ML VIAL IV ONE (07:31)
[2017-05-20] MEDS ORDERED: AMPICILLIN-SULBACTAM 1.5 GM in SODIUM CHLORIDE 0.9% 50 ML IVPB STA (08:38)
[2017-05-20] MEDS ORDERED: fentaNYL (PF) 50 MCG/ML 2 ML AMP ONE (08:51)
[2017-05-20] MEDS ORDERED: MIDAZOLAM 2 MG/2 ML VIAL ONE (08:51)
[2017-05-20] MEDS ORDERED: KETAMINE 10 MG/ML 20 ML VIAL ONE (08:51)
[2017-05-20] MEDS ORDERED: PROPOFOL 10 MG/ML 20 ML VIAL IV ONE (08:51)
[2017-05-20] MEDS ORDERED: IV FLUID CONTINUATION 700 ML IV ONE (08:51)
[2017-05-20] MEDS ORDERED: OXYMETAZOLINE 0.05% NASL SPRAY 15 ML ONE (08:51)
[2017-05-20] MEDS ORDERED: ONDANSETRON 4 MG/2 ML VIAL ONE (08:51)
[2017-05-20] MEDS ORDERED: DEXAMETHASONE SOD PHOS (MDV) 100 MG/10 ML VIAL ONE (08:51)
[2017-05-20] MEDS ORDERED: LIDOCAINE 2%-EPI 1:100,000 20 ML VIAL SUBMUCOSAL ONE ×2 (09:27)
--- NOTE | 2017-05-20 10:14 | P.PN ---
Progress Note - Text I came in to see the patient for Dr. Lacey that this weekend. However the patient is in the operating room getting manipular surgery. According to the nurses is otherwise fairly stable. We'll continue per oral surgery.
[2017-05-20] MEDS ORDERED: LACTATED RINGERS 1,000 ML IV ONE ×2 (11:22)
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
[2017-05-20] MEDS ORDERED: ONDANSETRON 4 MG/2 ML VIAL IVP PRN (12:18)
[2017-05-20] MEDS ORDERED: diphenhydrAMINE 50 MG/ML 1 ML VIAL IVP PRN (12:18)
[2017-05-20] MEDS ORDERED: NALOXONE 0.4 MG/ML 1 ML VIAL IV PRN (12:18)
[2017-05-20] MEDS: HYDROmorphone 1 MG/ML 1 ML SYRINGE IVP PRN ×2 (12:20→12:28)
[2017-05-20 12:33] LABS: Glucose,Whole Blood 138 mg/dL (75-99)
[2017-05-20] MEDS ORDERED: LABETALOL 5 MG/ML VIAL MDV IVP ONE (12:36)
[2017-05-20] MEDS: HYDROmorphone PCA 5 MG/25 ML SYRINGE IV PRN ×2 (13:15→20:49)
[2017-05-20] MEDS: THIAMINE 100 MG TAB PO SCH ×2 (14:46→17:33)
[2017-05-20] MEDS: LACTATED RINGERS 1,000 ML IV SCH (14:51)
[2017-05-20] MEDS: AMPICILLIN-SULBACTAM 3 GM in SODIUM CHLORIDE 0.9% 100 ML IVPB SCH ×2 (14:57→23:28)
[2017-05-20] MEDS: IBUPROFEN ORAL SUSP 2,400 MG/120 ML BOTTLE PO SCH ×3 (14:58→23:28)
--- NOTE | 2017-05-20 17:00 | XR ---
EXAMINATION TYPE: XR panorex DATE OF EXAM: 05/20/2017 COMPARISON: Panorex x-ray from yesterday HISTORY: Jaw fracture with interval surgery TECHNIQUE: Single Panorex view. FINDINGS: There is new deep or inner table fixating plate through oblique fracture near right mandibu lar angle with improved alignment after fixation. There is new deep or inner table plate through the left mandibular angle fracture with satisfactory alignment. Acute oblique fracture through right hori zontal ramus including central symphysis is redemonstrated and stable. Multiple maxillary and mandibu lar metallic sutures and fixating braces are redemonstrated. There is interval vertical wiring with c rossing metallic sutures noted. IMPRESSION: As above, satisfactory alignment after postoperative fixation and jaw wiring.
[2017-05-20 17:10] LABS: Glucose,Whole Blood 160 mg/dL (75-99)
[2017-05-21] LABS: Glucose,Whole Blood 133 mg/dL (75-99)
[2017-05-21] MEDS: INSULIN LISPRO (humaLOG) 300 UNIT/3 ML VIAL SQ SCH ×6 (02:09→20:31)
[2017-05-21] MEDS: IBUPROFEN ORAL SUSP 2,400 MG/120 ML BOTTLE PO SCH ×4 (05:18→23:15)
[2017-05-21] MEDS: DEXAMETHASONE SOD PHOSPHATE 4 MG/ML 1 ML VIAL IV SCH ×2 (05:18→12:40)
[2017-05-21 06:29] LABS: Glucose,Whole Blood 168 mg/dL (75-99)
[2017-05-21] MEDS: HEPARIN SODIUM,PORCINE 5,000 UNIT/ML 1 ML VIAL SQ SCH ×3 (07:34→23:15)
[2017-05-21] MEDS: FAMOTIDINE 20 MG/2 ML VIAL IV SCH ×2 (07:34→20:28)
[2017-05-21] MEDS: NICOTINE 21MG/24HR PATCH TRANSDERM SCH (07:35)
[2017-05-21 07:49] LABS: Basophils % (A) 0 %; CH 33.6; CHCM 34.8; Eosinophils # (A) 0.2 k/uL (0-0.7); Eosinophils % (A) 2 %; HCT 37.1 % (39.0-53.0); HDW 2.54; Luc # (Auto) 0.12; Luc % (Auto) 1; Lymphocytes # (A) 0.6 k/uL (1.0-4.8); Lymphocytes % (A) 3 %; MCH 33.8 pg (25.0-35.0); MCHC 34.9 g/dL (31.0-37.0); MCV 96.9 fL (80.0-100.0); Mean Platelet Volume 7.3; Monocytes # (A) 0.5 k/uL (0-1.0); Monocytes % (A) 3 %; Neutrophils % (A) 91 %; RBC 3.83 m/uL (4.30-5.90); RDW 12.6 % (11.5-15.5); WBC 16.4 k/uL (3.8-10.6); WBC (Perox) 18.04
[2017-05-21] MEDS: AMPICILLIN-SULBACTAM 3 GM in SODIUM CHLORIDE 0.9% 100 ML IVPB SCH ×2 (07:55→15:49)
[2017-05-21 08:06] LABS: ALT 54 U/L (21-72); AST 25 U/L (17-59); Alkaline Phosphatase 68 U/L (38-126); Anion Gap 11 mmol/L; Blood Urea Nitrogen 10 mg/dL (9-20); Calcium 9.6 mg/dL (8.4-10.2); Carbon Dioxide 24 mmol/L (22-30); Chloride 104 mmol/L (98-107); Glucose 118 mg/dL (74-99); Non-African American GFR(MDRD) >60 (>60 ml/min/1.73 sqM); Potassium 4.6 mmol/L (3.5-5.1); Sodium 139 mmol/L (137-145); Total Bilirubin 0.5 mg/dL (0.2-1.3); Total Protein 6.2 g/dL (6.3-8.2)
[2017-05-21] MEDS: HYDROmorphone PCA 5 MG/25 ML SYRINGE IV PRN (09:12)
--- NOTE | 2017-05-21 09:22 | P.PN ---
Progress Note - Text The patient is awake alert. Had ORIF of his the mandibular fractures yesterday by Dr. Pena. His tolerating his liquids. On examination the patient is awake alert. Vitals are stable. No fever. Usual swelling of facially. Abdomen is soft and benign. Impression. Post the trauma with the mandibular fractures. No evidence of any other injuries. Recommendation. Discharge per QRAL SURGERY when appropriate
[2017-05-21 11:07] LABS: Glucose,Whole Blood 127 mg/dL (75-99)
[2017-05-21] MEDS: THIAMINE 100 MG TAB PO SCH ×2 (12:44→15:45)
[2017-05-21 13:45] VITALS: RESP 16
[2017-05-21] MEDS ORDERED: HYDROmorphone 1 MG/ML 1 ML SYRINGE IVP PRN (16:16)
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
--- NOTE | 2017-05-21 16:35 | P.PN ---
Progress Note - Text Subjective. Patient is awake in bed with his girlfriend by his side chatting he appears comfortable alert and oriented 3. Apparent distress. Patient reports he's been drinking well and requests that he had mashed potatoes with lots engraving so he can try and make soup. I think this is a good sign and like that is hungry. Nurses also confirmed that he has been up to the bathroom all times without difficulty. It seems to be able to tolerate approximately 1- 2 L of fluids today. Reports his pain is well-controlled with the Motrin and Dilaudid and I explained that he can go home with Dilaudid and is willing to try the liquid [place] in place and of Dilaudid starting today. Objective. Patient's facial swelling appears to have gone down to approximately 20-30%. Maxillomandibular fixation is still intact with good occlusion. No intraoral wounds were noted to be open. Patient's vital signs were stable he's afebrile able to get up on his own without difficulty. Panoramic x-ray was reviewed and reduction is excellent. Assessment. One day status post open reduction internal fixation bilateral mandibular angle fractures. As well as closed reduction maxillomandibular fixation of mandibular right parasymphysis fracture Plan. Patient's intake is good and pain control is good so at this point would plan to work towards discharge. 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 And then DC the Dilaudid CUSTOMER SERVICE LEADER and do Dilaudid 1 mg IV push Q4 hours when necessary pain. Patient also has Motrin 400 mg every 4 hours ordered. Swelling is decreasing and he's been on steroids for sometime now so steroid weaning is appropriate. Orders been changed to Decadron 4 mg every 8 hours. Continue to push fluids. Encourage ambulation. Hopefully discharge tomorrow afternoon.
--- NOTE | 2017-05-21 16:37 | P.PN ---
Subjective Principal diagnosis: Mandibular fracture Mr. Multani is a 36-year-old male with a past medical history of MRSA cellulitis of the right arm, anxiety, bipolar disorder, depression admitted to the hospital for mandibular fracture. This is the second time the patient has the mandibular fracture. He underwent surgical Correction by OMFS yesterday. Patient is still on a DIPPING MACHINE OPERATOR pump for pain management. Today the patient is lying comfortably in the bed he does not have any active complaints except for jaw pain and swelling of his face. Review of systems -denies having any chest pain and difficulty in getting palpitations. No abdominal pain nausea vomiting or diarrhea. Objective - Vital Signs Vital signs: Vital Signs Temp 97 F L 05/21/17 13:44 Pulse 64 05/21/17 13:44 Resp 16 05/21/17 13:44 BP 152/73 05/21/17 13:44 Pulse Ox 95 05/21/17 13:44 Intake & Output 05/20/17 05/21/17 05/21/17 18:59 06:59 18:59 Intake Total 950 1600 Output Total 50 Balance 900 1600 Weight 77.111 kg Intake: IV 950 Intake, IV Titration 1600 Amount Ampicillin-Sulbactam 3 gm 100 In Sodium Chloride 0.9% 100 ml @ 100 mls/hr IVPB Q8HR ANILA Rx#:[id number] Sodium Chloride 0.9% 1, 1500 000 ml @ 150 mls/hr IV . Q6H40M ANILA Rx#:[id number] Output: Estimated Blood Loss 50 Other: Voiding Method Toilet # Voids 1 4 - Exam GENERAL EXAM Head exam: Present: normocephalic, other (Multiple contusions and facial swelling.) Eye exam: Present: PERRL, EOMI, periorbital swelling, periorbital tenderness. Absent: scleral icterus, conjunctival injection, nystagmus ENT exam: Patient's face is swollen, lips are swollen Respiratory exam: Present: normal lung sounds bilaterally. Absent: respiratory distress, wheezes, rales, rhonchi, stridor, chest wall tenderness Cardiovascular Exam: Present: normal rhythm, tachycardia, normal heart sounds. Absent: systolic murmur, diastolic murmur, rubs, gallop GI/Abdominal exam: Present: soft. Absent: distended, tenderness, guarding, rebound, mass Extremities exam: Present: normal inspection, normal capillary refill. Absent: pedal edema, calf tenderness Neurological exam: Drowsy , able to move all 4 extremities. Skin exam: Present: warm, dry, intact, normal color. Absent: rash - Labs CBC & Chem 7: 05/21/17 07:35 05/21/17 07:35 Labs: Abnormal Lab Results - Last 24 Hours (Table) 05/20/17 05/20/17 05/21/17 Range/Units 17:07 23:58 06:27 WBC (3.8-10.6) k/uL RBC (4.30-5.90) m/uL Hct (39.0-53.0) % Neutrophils # (1.3-7.7) k/uL Lymphocytes # (1.0-4.8) k/uL Creatinine (0.66-1.25) mg/dL Glucose (74-99) mg/dL POC Glucose (mg/dL) 160 H 133 H 168 H (75-99) mg/dL Total Protein (6.3-8.2) g/dL 05/21/17 05/21/17 05/21/17 Range/Units 07:35 07:35 11:01 WBC 16.4 H (3.8-10.6) k/uL RBC 3.83 L (4.30-5.90) m/uL Hct 37.1 L (39.0-53.0) % Neutrophils # 15.0 H (1.3-7.7) k/uL Lymphocytes # 0.6 L (1.0-4.8) k/uL Creatinine 0.60 L (0.66-1.25) mg/dL Glucose 118 H (74-99) mg/dL POC Glucose (mg/dL) 127 H (75-99) mg/dL Total Protein 6.2 L (6.3-8.2) g/dL Assessment and Plan Plan: ASSESSMENT Mandibular fracture Alcohol intoxication Anxiety disorder Depression with suicidal attempts 2 in the past History of MRSA infection in the past PTSD History of chronic low back pain Leukocytosis most likely reactive PLAN Patient has been given IV antibiotics prior to his surgery. Pain management as per primary care team. Continue to monitor for DTs. We will continue to follow the patient on when necessary basis.
[2017-05-21 17:10] LABS: Glucose,Whole Blood 120 mg/dL (75-99)
[2017-05-21] MEDS: LORazepam 2 MG/ML SYRINGE IV PRN (17:40)
[2017-05-21] MEDS: HYDROcodone/APAP 15 ML SOLUTION PO PRN ×2 (17:49→21:46)
[2017-05-21] MEDS: SODIUM CHLORIDE 0.9% 1,000 ML IV SCH ×3 (19:55→22:23)
[2017-05-21] MEDS: LACTATED RINGERS 1,000 ML IV SCH (19:55)
[2017-05-21 20:29] LABS: Glucose,Whole Blood 143 mg/dL (75-99)
[2017-05-22] MEDS: DEXAMETHASONE SOD PHOSPHATE 4 MG/ML 1 ML VIAL IV SCH ×3 (00:21→17:31)
[2017-05-22] MEDS: AMPICILLIN-SULBACTAM 3 GM in SODIUM CHLORIDE 0.9% 100 ML IVPB SCH ×3 (00:21→17:31)
[2017-05-22] MEDS: LORazepam 2 MG/ML SYRINGE IV PRN ×4 (00:27→19:09)
[2017-05-22] MEDS: IBUPROFEN ORAL SUSP 2,400 MG/120 ML BOTTLE PO SCH ×3 (05:08→17:30)
[2017-05-22] MEDS: SODIUM CHLORIDE 0.9% 1,000 ML IV SCH (05:09)
[2017-05-22] MEDS: HYDROcodone/APAP 15 ML SOLUTION PO PRN ×4 (05:13→19:00)
[2017-05-22 06:45] LABS: Basophils % (A) 0 %; CH 34.1; CHCM 34.7; Eosinophils % (A) 0 %; HCT 37.7 % (39.0-53.0); HDW 2.54; HGB 12.8 gm/dL (13.0-17.5); Luc # (Auto) 0.11; Luc % (Auto) 1; Lymphocytes # (A) 0.9 k/uL (1.0-4.8); Lymphocytes % (A) 7 %; MCH 33.4 pg (25.0-35.0); MCHC 33.9 g/dL (31.0-37.0); MCV 98.6 fL (80.0-100.0); Mean Platelet Volume 7.5; Monocytes # (A) 0.5 k/uL (0-1.0); Monocytes % (A) 4 %; Neutrophils # (A) 10.4 k/uL (1.3-7.7); Neutrophils % (A) 88 %; RBC 3.83 m/uL (4.30-5.90); RDW 13.1 % (11.5-15.5); WBC 11.8 k/uL (3.8-10.6); WBC (Perox) 11.68
[2017-05-22 06:50] LABS: Glucose,Whole Blood 147 mg/dL (75-99)
[2017-05-22 07:03] LABS: ALT 59 U/L (21-72); AST 32 U/L (17-59); Alkaline Phosphatase 64 U/L (38-126); Anion Gap 6 mmol/L; Blood Urea Nitrogen 13 mg/dL (9-20); Calcium 9.3 mg/dL (8.4-10.2); Carbon Dioxide 25 mmol/L (22-30); Chloride 106 mmol/L (98-107); Glucose 118 mg/dL (74-99); Non-African American GFR(MDRD) >60 (>60 ml/min/1.73 sqM); Potassium 4.5 mmol/L (3.5-5.1); Sodium 137 mmol/L (137-145); Total Bilirubin 0.5 mg/dL (0.2-1.3); Total Protein 5.5 g/dL (6.3-8.2)
[2017-05-22] MEDS: FAMOTIDINE 20 MG/2 ML VIAL IV SCH (07:42)
[2017-05-22] MEDS: HEPARIN SODIUM,PORCINE 5,000 UNIT/ML 1 ML VIAL SQ SCH ×2 (07:42→17:30)
[2017-05-22] MEDS: INSULIN LISPRO (humaLOG) 300 UNIT/3 ML VIAL SQ SCH ×3 (07:43→17:23)
[2017-05-22] MEDS: NICOTINE 21MG/24HR PATCH TRANSDERM SCH (07:55)
[2017-05-22 11:43] LABS: Glucose,Whole Blood 111 mg/dL (75-99)
[2017-05-22] MEDS: THIAMINE 100 MG TAB PO SCH ×2 (13:10→17:23)
--- NOTE | 2017-05-22 14:46 | P.PN ---
Progress Note - Text The patient is stable. Had ORIF of mandibular fracture yesterday morning. He is able to swallow for fluids. Some tenderness as expected. He is afebrile. Neck and head of facial situation to be evaluated by oral surgery. Should be able to be discharged home today or tomorrow.
[2017-05-22 15:35] VITALS: BP 155/97; PULSE 60; TEMP 97.2
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
[2017-05-22 16:41] LABS: Glucose,Whole Blood 128 mg/dL (75-99)
[2017-05-22] MEDS ORDERED: methylPREDNISolone SOD SUCCI 125 MG/2 ML VIAL IM ONE (18:09)
--- NOTE | 2017-05-22 18:32 | P.PN ---
Progress Note - Text Subjective. The patient's up in bed resting comfortably easily arousable alert and oriented 3. Expresses a desire to go home has been tolerating fluids very well estimated over 2 L today. Urine output is good. Reports his pain control is good has not wanted any Dilaudid since the BRAND COORDINATOR was discontinued. Motrin and Blanco has been working well. Does express some disappointment about the numbness in his left again consulted that this is unlikely to return given the severity of injury but there is a possibility. Patient reports that the dietary consult was done today and he understands his obligation to maintain an appropriate protein intake of approximately 70 g. He reported at his last mandible fracture he mixed [place] Instant Breakfast with pain upon her to achieve that. Objective. Afebrile vital signs stable swelling is continuing to decrease. No intraoral dehiscence of wounds noted. Maxillomandibular fixation is stable. Occlusion is stable. Assessment patient doing very well postoperatively tolerating fluids well and his pain control is adequate with pain medicine. No evidence of infection at this time. An expresses a desire to go home. Plan. Pt stabel for DC and plan to DC home DC Decadron and will order 120 mg Solu-Medrol IM as a taper. Patient to keep wire cutters on person upon discharge. home medications to be discharged on Motrin 600 mg 1 tab by mouth crushed every 6 hours when necessary pain. Blanco elixir dispense 470 mL's take 10-15 mL's by mouth every 4 hours when necessary pain. Amoxicillin liquid 250 mg per 5 mL's dispense 300 ml take 10 ml by mouth 3 times a day for 10 days. Chlorhexidine uroseptic mouthwash dispense 470 mL take 10 mL by mouth rinse and spit 4 times a day. Patient to contact my office tomorrow for an appointment next week probably Monday or Monday
== END 2017-05-22 19:20 | disposition home or self-care (01) | DRG 131 ==
LOC: EC 20:24 → 3SUR 05-19 02:11
PROVIDERS: ADMIT Surgery; ATTEND Surgery
PROC: 0NST04Z Reposition Right Mandible with Internal Fixation Device, Open Approach (ICD-10-PCS; 2017-05-20)
PROC: 0NSV04Z Reposition Left Mandible with Internal Fixation Device, Open Approach (ICD-10-PCS; principal; 2017-05-20 08:30)
DX: S02.652B Fracture of angle of left mandible, initial encounter for open fracture (principal); F10.239 Alcohol dependence with withdrawal, unspecified; I10 Essential (primary) hypertension; D72.829 Elevated white blood cell count, unspecified; S00.83XA Contusion of other part of head, initial encounter; S02.651B Fracture of angle of right mandible, initial encounter for open fracture; S02.66XA Fracture of symphysis of mandible, initial encounter for closed fracture; F10.229 Alcohol dependence with intoxication, unspecified; F17.200 Nicotine dependence, unspecified, uncomplicated; F31.9 Bipolar disorder, unspecified; F43.10 Post-traumatic stress disorder, unspecified; F41.9 Anxiety disorder, unspecified; G89.29 Other chronic pain; M54.5 Low back pain; F12.90 Cannabis use, unspecified, uncomplicated; Z86.14 Personal history of Methicillin resistant Staphylococcus aureus infection; Z88.5 Allergy status to narcotic agent; Y09 Assault by unspecified means; Y92.9 Unspecified place or not applicable; Y90.7 Blood alcohol level of 200-239 mg/100 ml
CPT/HCPCS: 36415; 70355; 70450; 70486; 72125; 80048; 80053; 80320; 83036; 85025; 90471; 90715; 96361; 96365; 96372; 96375; 99285

== ENCOUNTER 2017-06-15 22:56 | Emergency (ER) | payer OTHER ==
[2017-06-15 23:06] VITALS: RESP 18
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
[2017-06-16 03:31] VITALS: BP 100/52; PULSE 76; TEMP 97
== END 2017-06-16 03:32 | disposition home or self-care (01) ==
LOC: EC 22:56
DX: T40.601A Poisoning by unspecified narcotics, accidental (unintentional), initial encounter (principal); R68.84 Jaw pain; F17.200 Nicotine dependence, unspecified, uncomplicated; Z88.6 Allergy status to analgesic agent
CPT/HCPCS: 82075; 99284

== ENCOUNTER 2018-03-10 17:26 | Inpatient (IN) | payer MEDICAID, OTHER ==
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
--- NOTE | 2018-03-10 18:34 | XR ---
EXAMINATION TYPE: XR hand complete RT DATE OF EXAM: 03/10/2018 CLINICAL HISTORY: pain TECHNIQUE: Frontal, lateral and oblique images of the right hand are obtained. COMPARISON: None. FINDINGS: There is no acute fracture/dislocation evident. The joint spaces appear within normal limi ts. There is swelling overlying the dorsum of the hand. IMPRESSION: There is no acute fracture or dislocation ICD 10 NO FRACTURE, INITIAL EVALUATION
[2018-03-10 18:35] LABS: Amphetamine Screen,Urine Not Detected (NotDetected); Barbiturate Screen,Urine Not Detected (NotDetected); Benzodiazepines Screen,Urine Not Detected (NotDetected); Cocaine Screen,Urine Not Detected (NotDetected); Methadone Screen, Urine Not Detected (NotDetected); Opiate Screen,Urine Not Detected (NotDetected); Oxycodone Screen, Urine Not Detected (NotDetected); Phencyclidine Screen,Urine Not Detected (NotDetected); Tricyclic Antidepressant,Urine Not Detected (NotDetected); Urn Cannabinoid Scrn Detected (NotDetected)
[2018-03-11] MEDS ORDERED: ACETAMINOPHEN TAB 325 MG TAB PO STA (04:10)
[2018-03-11] MEDS ORDERED: IBUPROFEN 600 MG TAB PO STA (04:10)
[2018-03-11] MEDS ORDERED: MAG HYDROX/AL HYDROX/SIMETH 30 ML CUP PO PRN (04:46)
[2018-03-11] MEDS ORDERED: MAGNESIUM HYDROXIDE 2,400 MG/10 ML CUP PO PRN (04:46)
[2018-03-11] MEDS ORDERED: LORazepam 1 MG TAB PO PRN (04:46)
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
[2018-03-11] MEDS: NICOTINE 21MG/24HR PATCH TRANSDERM SCH (08:12)
[2018-03-11] MEDS: ACETAMINOPHEN TAB 325 MG TAB PO PRN (08:13)
[2018-03-11] MEDS ORDERED: cloNIDine HCL 0.1 MG TAB PO PRN (08:19)
[2018-03-11] MEDS: ONDANSETRON ODT 4 MG TAB PO PRN ×2 (10:33→18:38)
--- NOTE | 2018-03-11 10:35 | XR ---
EXAMINATION TYPE: XR hand complete RT , 3 VIEWS DATE OF EXAM ORDERED: 03/11/2018 HISTORY: swelling and pain. COMPARISON: Previous study dated 03/10/2018. FINDINGS: No fracture, dislocation or other acute osseous lesion is seen. IMPRESSION: NO ACUTE OSSEOUS LESION.
[2018-03-11] MEDS: LOPERAMIDE 2 MG CAP PO PRN (11:01)
[2018-03-11 11:33] LABS: Appearance,Urine Clear (Clear); Bacteria,Urine Rare /hpf; Bilirubin,Urine 1+ (Negative); Blood,Urine Negative (Negative); Color,Urine Yellow; Glucose,Urine (UA) Trace (Negative); Ketones,Urine 2+ (Negative); Leukocyte Esterase,Urine Negative (Negative); Mucus,Urine Moderate /hpf; Nitrite,Urine Negative (Negative); PH, Urine 6.5 (5.0-8.0); Protein,Urine 1+ (Negative); RBC,Urine 2 /hpf (0-5); Specific Gravity,Urine 1.031 (1.001-1.035); Sperm,Urine Moderate /hpf; Squamous Epithelial Cell,Urine 1 /hpf (0-4); WBC,Urine 1 /hpf (0-5)
[2018-03-11] MEDS: LORazepam 1 MG TAB PO PRN ×2 (13:20→18:38)
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
[2018-03-11 13:48] VITALS: BMI 25.9
[2018-03-11] MEDS: QUEtiapine 100 MG TAB PO SCH (20:07)
[2018-03-11] MEDS: PRAZOSIN 1 MG CAP PO SCH (20:07)
[2018-03-12] MEDS: NICOTINE 21MG/24HR PATCH TRANSDERM SCH (08:21)
[2018-03-12] MEDS: ONDANSETRON ODT 4 MG TAB PO PRN (08:22)
[2018-03-12] MEDS: ACETAMINOPHEN TAB 325 MG TAB PO PRN (08:24)
[2018-03-12] MEDS: LORazepam 1 MG TAB PO PRN ×3 (08:24→20:53)
[2018-03-12] MEDS: IBUPROFEN 400 MG TAB PO PRN ×2 (10:21→20:54)
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
[2018-03-12 11:48] LABS: Basophils % (A) 0 %; Eosinophils # (A) 0.1 k/uL (0-0.7); Eosinophils % (A) 1 %; HCT 46.8 % (39.0-53.0); HGB 16.2 gm/dL (13.0-17.5); Lymphocytes # (A) 1.3 k/uL (1.0-4.8); Lymphocytes % (A) 15 %; MCH 31.2 pg (25.0-35.0); MCHC 34.5 g/dL (31.0-37.0); MCV 90.3 fL (80.0-100.0); Mean Platelet Volume 7.1; Monocytes # (A) 0.7 k/uL (0-1.0); Monocytes % (A) 8 %; Neutrophils # (A) 6.3 k/uL (1.3-7.7); Neutrophils % (A) 74 %; Platelet Count 198 k/uL (150-450); RBC 5.18 m/uL (4.30-5.90); RDW 14.4 % (11.5-15.5); WBC 8.5 k/uL (3.8-10.6)
[2018-03-12 12:05] LABS: ALT 261 U/L (21-72); AST 155 U/L (17-59); Albumin 4.2 g/dL (3.5-5.0); Alkaline Phosphatase 119 U/L (38-126); Anion Gap 12 mmol/L; Blood Urea Nitrogen 15 mg/dL (9-20); Calcium 10.1 mg/dL (8.4-10.2); Carbon Dioxide 29 mmol/L (22-30); Chloride 102 mmol/L (98-107); Cholesterol 249 mg/dL (<200); Glucose 98 mg/dL (74-99); HDL Cholesterol 76 mg/dL (40-60); LDL Cholesterol,Calculated 116 mg/dL (0-99); Potassium 4.2 mmol/L (3.5-5.1); Sodium 143 mmol/L (137-145); Total Bilirubin 0.8 mg/dL (0.2-1.3); Total Protein 6.6 g/dL (6.3-8.2); Triglycerides 284 mg/dL (<150)
[2018-03-12] MEDS: LOPERAMIDE 2 MG CAP PO PRN (15:20)
[2018-03-12 18:54] LABS: Hemoglobin A1C 5.3 % (4.0-6.0)
[2018-03-12] MEDS: QUEtiapine 100 MG TAB PO SCH (20:53)
[2018-03-12] MEDS: PRAZOSIN 1 MG CAP PO SCH (21:17)
[2018-03-13] MEDS: LORazepam 1 MG TAB PO PRN ×3 (06:43→18:38)
[2018-03-13] MEDS: IBUPROFEN 400 MG TAB PO PRN ×2 (06:43→18:37)
[2018-03-13] MEDS: NICOTINE 21MG/24HR PATCH TRANSDERM SCH (08:32)
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
[2018-03-13] MEDS: LOPERAMIDE 2 MG CAP PO PRN (12:42)
[2018-03-13] MEDS ORDERED: QUEtiapine 100 MG TAB PO SCH (21:00)
[2018-03-13] MEDS: PRAZOSIN 1 MG CAP PO SCH (21:02)
[2018-03-14] MEDS: IBUPROFEN 400 MG TAB PO PRN ×3 (01:19→13:31)
[2018-03-14] MEDS: LORazepam 1 MG TAB PO PRN ×3 (01:19→13:31)
[2018-03-14 06:54] VITALS: BP 122/80; PULSE 111; RESP 18; TEMP 97.7
[2018-03-14] MEDS: NICOTINE 21MG/24HR PATCH TRANSDERM SCH (08:03)
--- NOTE | 2018-03-14 10:24 | P.PN ---
Progress Note - Text Progress Note Date: 03/14/18 Patient was seen for routine follow-up examination. He does not have any specific complaints or concerns. Today he said he has to [facility] the [facility], try to get a job and go on with his life. Did not say anything about taking care of his children or seeing them or being part of their life even though he said he had come to [place] to be part of his children's life. These can effect talk goes very well with his [place] II diagnosis. His blood pressure is within normal today. This is a white ambulatory male with adequate hygiene. He does not have any foot odor today. He does not show any psychomotor agitation or retardation. His speech is spontaneous and goal-directed. Continues to be quite manipulative. Mood is cheerful and affect is appropriate. Continues to deny suicide and homicide thoughts. Denies hallucinations and delusional thinking. His sensorium is clear. Plan: Continue current meds and plans. Consider discharge after discussing his condition with the treatment team.
--- NOTE | 2018-03-14 11:47 | P.DS ---
Providers Date of admission: 03/11/18 04:09 Expected date of discharge: 03/14/18 Attending physician: Alexi Mark Consults: 03/11/18 04:46 Consult Physician Routine Consulting Provider: [facility] Reason/Comments: H & P Do you want consulting provider notified?: Yes Primary care physician: Stated None Hospital Course: Patient had his psychiatric evaluation done by Dr. Valentine, had physical examination and psychosocial evaluation. After psychiatric evaluation Dr. Valentine started him on Seroquel 100 mg at bedtime and Minipress 1 mg at bedtime. He was detoxed according to the protocol. He attended groups, socialized with peers and interacted with staff. Patient was not forthcoming with good, reliable history. He continued to be rather manipulative and appeared to be making up stories. Eventually he agreed to be discharged to the group home with follow-up at [facility]. In view of all these it was agreed to discharge him. Condition at discharge: This is a white ambulatory male with adequate hygiene. He is polite and cooperative. He does not show any psychomotor agitation or retardation. His speech is spontaneous and goal-directed. His mood is cheerful and affect is appropriate. Continues to deny suicide and homicide thoughts. Denies hallucinations and delusional thinking. Sensorium is clear. His insight is adequate and judgment needs to be improved. Diagnosis on discharge: Adjustment disorder unspecified F 43.20. Alcohol use disorder severe F 10.20. Cannabis use disorder moderate to severe F 12.20. Antisocial personality disorder F 60.2. ALLERGY to tramadol and Ketorolac. Elevated liver enzymes and delusional. 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 Plan - Discharge Summary Discharge Rx Participant: No New Discharge Prescriptions: New Prazosin [Minipress] 1 mg PO HS 30 Days #30 cap QUEtiapine [SEROquel] 150 mg PO HS 30 Days #30 tab Discontinued HYDROcodone/APAP [[place] Elixir 7.5-325Mg/15Ml] 10 - 15 ml PO Q4HR PRN #470 ml PRN Reason: Pain Ibuprofen [Motrin] 200 - 400 mg PO Q6HR PRN PRN Reason: Pain Ibuprofen [Motrin] 800 mg PO Q8H PRN PRN Reason: Pain ALPRAZolam [Xanax] 0.5 mg PO DAILY PRN PRN Reason: Anxiety Discharge Medication List Prazosin [Minipress] 1 mg PO HS 30 Days #30 cap 03/14/18 [Rx] QUEtiapine [SEROquel] 150 mg PO HS 30 Days #30 tab 03/14/18 [Rx] Follow up Appointment(s)/Referral(s): [facility] [Outside] - 03/15/18 11:00 am None,Stated [Primary Care Provider] - 1-2 days
== END 2018-03-14 14:42 | disposition home or self-care (01) | DRG 882 ==
LOC: EC 17:26 → 3MHU 03-11 04:09
PROVIDERS: ADMIT Psychiatry & Neurology Psychiatry; ATTEND Psychiatry & Neurology Psychiatry
DX: F43.20 Adjustment disorder, unspecified (principal); R45.851 Suicidal ideations; F10.239 Alcohol dependence with withdrawal, unspecified; F33.2 Major depressive disorder, recurrent severe without psychotic features; F10.280 Alcohol dependence with alcohol-induced anxiety disorder; F10.24 Alcohol dependence with alcohol-induced mood disorder; Z62.810 Personal history of physical and sexual abuse in childhood; F43.10 Post-traumatic stress disorder, unspecified; F41.9 Anxiety disorder, unspecified; F17.200 Nicotine dependence, unspecified, uncomplicated; F12.90 Cannabis use, unspecified, uncomplicated; F60.2 Antisocial personality disorder; F41.0 Panic disorder [episodic paroxysmal anxiety]; I10 Essential (primary) hypertension; S69.81XA Other specified injuries of right wrist, hand and finger(s), initial encounter; Y04.0XXA Assault by unarmed brawl or fight, initial encounter; Z91.5 Personal history of self-harm; Z79.899 Other long term (current) drug therapy; Z86.14 Personal history of Methicillin resistant Staphylococcus aureus infection; Z87.828 Personal history of other (healed) physical injury and trauma; Z88.5 Allergy status to narcotic agent; Z83.3 Family history of diabetes mellitus; Z81.1 Family history of alcohol abuse and dependence; Z80.1 Family history of malignant neoplasm of trachea, bronchus and lung
CPT/HCPCS: 80053; 80061; 80306; 81001; 82075; 83036; 84443; 85025; 87086; 99285